=== PATIENT | male | born 1935 | race Caucasian/White ===

== ENCOUNTER 2020-01-15 04:13 | Day surgery (SDC) | payer OTHER, BC ==
[2020-01-14 12:56] VITALS: BMI 34.4
[~2020-01-15 04:13] MED LIST: BSS (NA/CA/MG/K) BALANCED SALT SOLUTION OPHTH SOLN 15 ML BOTTLE OD ONE; CHONDROITIN SU A/HYALUR SOD 1 KIT IO ONE; EPINEPHrine/PF 1 MG/1 ML (1:1,000) AMPULE SQ ONE; LIDOCAINE HCL 1% PRESERVATIVE FREE - 30ML VIAL IO ONE; POVIDONE-IODINE 5% OPHTHALMIC PREP 30 ML SOLUTION OD ONE; TETRACAINE 0.5% OPHTH SOLN 2 ML BOTTLE OD ONE; TOBRAMYCIN/DEXAMETHASONE OPHTH. OINTMENT 1 TUBE OD ONE
[2020-01-15] MEDS ORDERED: CIPROFLOXACIN HCL 0.3% OPHTH 2.5ML BOTTLE ONE (06:36)
[2020-01-15] MEDS ORDERED: TROPICAMIDE 1% OPHTH SOLN 15 ML BOTTLE ONE (06:36)
[2020-01-15] MEDS ORDERED: KETOROLAC TROMETHAMINE 0.5% EYE DROP 1 DROP DROPS ONE (06:37)
[2020-01-15] MEDS ORDERED: TETRACAINE 0.5% OPHTH SOLN 2 ML BOTTLE ONE (06:49)
[2020-01-15] MEDS ORDERED: TOBRAMYCIN/DEXAMETHASONE OPHTH. OINTMENT 1 TUBE ONE (06:49)
[2020-01-15] MEDS ORDERED: EPINEPHrine/PF 1 MG/1 ML (1:1,000) AMPULE ONE ×2 (06:49→07:16)
[2020-01-15] MEDS ORDERED: LIDOCAINE HCL/PF 1% SDV 5ML VIAL ONE (06:49)
[2020-01-15] MEDS ORDERED: POVIDONE-IODINE 5% OPHTHALMIC PREP 30 ML SOLUTION ONE (06:50)
[2020-01-15] MEDS ORDERED: CHONDROITIN SU A/HYALUR SOD 1 KIT ONE (06:52)
[2020-01-15] MEDS ORDERED: ACETAMINOPHEN 325 MG TABLET (FP) PO PRN (06:58)
[2020-01-15] MEDS ORDERED: TROPICAMIDE 1% OPHTH SOLN 15 ML BOTTLE OP SCH (07:00)
[2020-01-15] MEDS ORDERED: CIPROFLOXACIN HCL 0.3% OPHTH 2.5ML BOTTLE OP SCH (07:00)
[2020-01-15] MEDS ORDERED: KETOROLAC TROMETHAMINE 0.5% EYE DROP 1 DROP DROPS OP SCH (07:00)
[2020-01-15] MEDS ORDERED: PHENYLEPHRINE 2.5% OPHTH SOLN 15 ML BOTTLE OP SCH (07:00)
--- NOTE | 2020-01-15 07:06 | HP ---
- Patient Scheduled date of Surgery: 01/15/20 Scheduled Surgical Procedure: Phacoemulsification and cataract extraction with PCIOL Affected Eye: Right Chief Complaint (Indication for surgery): Decreased vision affecting ADLs - Ocular History Other Eye History: Other (OHTN, Ptosis) Eye Medications: vigamox Previous Eye Surgery: s/p ce/pciol OS - Medical History Illnesses: Hypertension, Hypercholesterolemia, Other (afib, CHF, BPH) Current Medications: Ambulatory Orders Apixaban [Eliquis] 5 mg PO BID 01/15/20 Atorvastatin Ca [Lipitor] 40 mg PO HS 01/15/20 Cholecalciferol (Vitamin D3) [Vitamin D3 -] 1,000 unit PO DAILY 01/15/20 Finasteride 5 mg PO DAILY 01/15/20 Hydrochlorothiazide [Hctz -] 25 mg PO DAILY 01/15/20 Icosapent Ethyl [Vascepa] 2 gm PO BID 01/15/20 Metoprolol Succinate 50 mg PO DAILY 01/15/20 Multivitamins [Tab-A-Vit -] 1 tab PO DAILY 01/15/20 Potassium Chloride 20 meq PO DAILY 01/15/20 Tamsulosin HCl 0.4 mg PO DAILY 01/15/20 Torsemide 100 mg PO DAILY 01/15/20 Allergies/Adverse Reactions: Allergies Allergy/AdvReac Type Severity Reaction Status Date / Time No Known Drug Allergies Allergy Verified 01/15/20 06:33 Ocular Examination - Best Corrected Visual Acuity Distance: Right eye: CF Distance: Left eye: 20/25 +2 - External/Slit Lamp Examination Abnormalities: ptosis, blepharochalasis - Intraocular Pressure Intraocular Pressure - Right eye: 20 Intraocular Pressure-Left eye: 20 - Lens Lens: 3+ NS 3+ PSC, 2+ cortical - Vitreous/Retina Vitreous/Retina: C:D 0.4 m/v/p wnl - Special Examination M - Right eye: -2.25-1.25 x 080 M - Left eye: +1.25 -2.25 x 105 K - Right eye: 44.7/44.88 x041 K - Left eye: 42.75/45.56 x 015 AL - Right eye: 23.70 AL - Left eye: 23.47 IOL bag: +19.5 AUOOTO IOL sulcus: +19.0 [id number] IOL AC: +16.5 [id number] - Impression Impression: Cataract Right Eye (mature) - Plan Plan: Phacoemulsification and cataract extraction - IOL Right eye Post-hospital care will be provided in office on: 01/16/20
--- NOTE | 2020-01-15 07:07 | HP ---
History & Physical Update - History History: No Change - Physical Physical: No Change - Assessment Assessment: No Change - Plan Plan: No Change (H and P reviewed from Dr. Watkins from 12/29/2019 no cynthia peña)
[2020-01-15] MEDS ORDERED: TRYPAN BLUE 0.5 ML DISP.SYRIN ONE (07:19)
[2020-01-15] MEDS ORDERED: MIDAZOLAM HCL 2 MG/2 ML SINGLE DOSE VIAL ONE (07:37)
[2020-01-15] MEDS ORDERED: TETRACAINE 0.5% OPHTH SOLN 2 ML BOTTLE OD ONE (07:42)
[2020-01-15] MEDS ORDERED: POVIDONE-IODINE 5% OPHTHALMIC PREP 30 ML SOLUTION OD ONE (07:45)
[2020-01-15] MEDS ORDERED: LIDOCAINE HCL 1% PRESERVATIVE FREE - 30ML VIAL IO ONE (07:50)
[2020-01-15] MEDS ORDERED: CHONDROITIN SU A/HYALUR SOD 1 KIT IO ONE (07:50)
[2020-01-15] MEDS ORDERED: EPINEPHrine/PF 1 MG/1 ML (1:1,000) AMPULE SQ ONE ×2 (07:50→07:58)
[2020-01-15] MEDS ORDERED: BSS (NA/CA/MG/K) BALANCED SALT SOLUTION OPHTH SOLN 15 ML BOTTLE OD ONE (07:50)
[2020-01-15] MEDS ORDERED: TOBRAMYCIN/DEXAMETHASONE OPHTH. OINTMENT 1 TUBE OD ONE (08:15)
--- NOTE | 2020-01-15 08:21 | OP ---
Ophthalmology Operative Note Pre-Operative Diagnosis: Mature cataract Affected Eye: Right Operation: Phacoemulsification and cataract extraction with PCIOL Findings: mature cataract right eye Post-Operative Diagnosis: Same as Pre-op Commodity Management Specialist: None Anesthesiologist: Matteo Mustafa Anesthesia: Topical Specimens Removed: none Drains & Tubes with Location: < 1 cc Operative Report Dictated: Yes
[2020-01-15 08:41] VITALS: PULSE 50
--- NOTE | 2020-01-15 08:53 | OP ---
DATE OF OPERATION: DATE OF DICTATION: 01/15/2020 PREOPERATIVE DIAGNOSIS: Mature cataract, right eye. POSTOPERATIVE DIAGNOSIS: Mature cataract, right eye. PROCEDURE: Phacoemulsification and cataract extraction with insertion of posterior chamber intraocular lens, right eye. SURGEON: India Solorzano MD DEPARTMENT CLERK: None. ANESTHESIA: Topical. ANESTHESIOLOGIST: LUBA Gardner OPERATIVE PROCEDURE: The patient received Tetracaine eye drops and was gently sedated and prepped and draped in the usual sterile fashion so as to expose only the right eye. Ophthalmic Betadine was instilled into the inferior fornix and lashes were taped out of the surgical field. An eyelid speculum was placed into the right eye. Paracentesis was made in superior temporal clear cornea at the limbus. Then 0.5 mL of nonpreserved lidocaine 1% was injected into the anterior chamber and then 1 mL of dilute epinephrine 1:10,000 was injected into the anterior chamber to improve pupillary dilation. Viscoelastic material was instilled into the anterior chamber via the paracentesis. A 2.4-mm keratome blade was then used to create the main incision in temporal clear cornea at the limbus. A continuous curvilinear capsulorrhexis was performed using a cystotome and Utrata forceps. Hydrodissection of the lens cortex was performed using BSS on a cannula until the nucleus was noted to be freely rotating. The phacoemulsification tip was then inserted via the main wound and used to scope 2 perpendicular grooves into the lens nucleus. The nucleus was cracked into 4 quadrants. Each quadrant was lifted out of the capsule into the iris plane and individually phacoemulsified. The remaining cortical material was then aspirated using the irrigation/aspiration port. The capsular bag was inflated using ProVisc and a preloaded AcrySof lens model [id number] power +19.5 diopters was injected into the capsular bag. It was centered using a Sinskey hook. The residual viscoelastic material was removed from the anterior chamber using irrigation and aspiration. The wound edges were hydrated using BSS. The wound was tested for leakage and was found to be watertight. Tobradex ointment was placed in the eye, and the speculum was removed from the eye, and the eyelid was closed. A sterile dressing and shield were placed over the eye. The patient was transferred to the recovery room in stable condition, told to follow up in 1 day. INDIA SOLORZANO M.D. [id number]
[2020-01-15 09:58] VITALS: BP 104/52; TEMP 97.8
== END 2020-01-15 10:01 | disposition home or self-care (01) ==
LOC: EDSEX → JASU-SURG 04:13
PROVIDERS: ATTEND Ophthalmology
PROC: 08RJ3JZ Replacement of Right Lens with Synthetic Substitute, Percutaneous Approach (ICD-10-PCS; principal; 2020-01-15 07:30)
DX: H26.9 Unspecified cataract (principal); I11.0 Hypertensive heart disease with heart failure; I48.91 Unspecified atrial fibrillation; I50.9 Heart failure, unspecified; N40.0 Benign prostatic hyperplasia without lower urinary tract symptoms; E78.00 Pure hypercholesterolemia, unspecified